=== PATIENT | female | born 1970 | race Two or more races ===

== ENCOUNTER 2018-02-10 08:45 | Outpatient (CLI) | payer OTHER ==
[~2018-02-10 08:45] MED LIST: FLONASE16 GM NS; ZANTAC300 MG PO; ZYRTEC10 MG PO
== END 2018-02-10 09:15 | disposition home or self-care (01) ==
LOC: LAB 08:45
DX: D50.0 Iron deficiency anemia secondary to blood loss (chronic) (principal); N93.9 Abnormal uterine and vaginal bleeding, unspecified; K21.9 Gastro-esophageal reflux disease without esophagitis; D51.8 Other vitamin B12 deficiency anemias; D50.8 Other iron deficiency anemias; D55.0 Anemia due to glucose-6-phosphate dehydrogenase [G6PD] deficiency; D51.0 Vitamin B12 deficiency anemia due to intrinsic factor deficiency; D51.1 Vitamin B12 deficiency anemia due to selective vitamin B12 malabsorption with proteinuria

== ENCOUNTER 2018-03-02 08:26 | Outpatient (CLI) | payer OTHER | END 2018-03-02 10:57 | disposition home or self-care (01) | LOC: SONOGRAMA 08:26 | DX: N60.11 Diffuse cystic mastopathy of right breast (principal); N60.12 Diffuse cystic mastopathy of left breast ==

== ENCOUNTER 2018-06-17 07:40 | Outpatient (CLI) | payer OTHER | END 2018-06-17 07:53 | disposition home or self-care (01) | LOC: LAB 07:40 | DX: D50.0 Iron deficiency anemia secondary to blood loss (chronic) (principal); N93.8 Other specified abnormal uterine and vaginal bleeding; D51.1 Vitamin B12 deficiency anemia due to selective vitamin B12 malabsorption with proteinuria; D51.0 Vitamin B12 deficiency anemia due to intrinsic factor deficiency; K21.9 Gastro-esophageal reflux disease without esophagitis; E03.8 Other specified hypothyroidism; E06.3 Autoimmune thyroiditis; D68.0 Von Willebrand disease; D68.8 Other specified coagulation defects ==

== ENCOUNTER 2018-06-17 08:35 | Outpatient (CLI) | payer OTHER | END 2018-06-17 08:53 | disposition home or self-care (01) | LOC: RAD 08:35 | DX: D50.0 Iron deficiency anemia secondary to blood loss (chronic) (principal); N93.8 Other specified abnormal uterine and vaginal bleeding; D51.1 Vitamin B12 deficiency anemia due to selective vitamin B12 malabsorption with proteinuria; D51.0 Vitamin B12 deficiency anemia due to intrinsic factor deficiency; K21.9 Gastro-esophageal reflux disease without esophagitis; E03.8 Other specified hypothyroidism; E06.3 Autoimmune thyroiditis; K59.09 Other constipation ==

== ENCOUNTER 2018-08-28 08:12 | Outpatient (CLI) | payer OTHER | END 2018-08-28 08:20 | disposition home or self-care (01) | LOC: LAB 08:12 | DX: D68.0 Von Willebrand disease (principal); D50.0 Iron deficiency anemia secondary to blood loss (chronic); N93.9 Abnormal uterine and vaginal bleeding, unspecified; D51.1 Vitamin B12 deficiency anemia due to selective vitamin B12 malabsorption with proteinuria; D51.0 Vitamin B12 deficiency anemia due to intrinsic factor deficiency; K21.9 Gastro-esophageal reflux disease without esophagitis; D50.8 Other iron deficiency anemias; D51.8 Other vitamin B12 deficiency anemias; D68.8 Other specified coagulation defects ==

== ENCOUNTER 2019-01-25 08:50 | Outpatient (CLI) | payer OTHER | END 2019-01-25 12:15 | disposition home or self-care (01) | LOC: LAB 08:50 | DX: D68.0 Von Willebrand disease (principal); D50.0 Iron deficiency anemia secondary to blood loss (chronic); N93.8 Other specified abnormal uterine and vaginal bleeding; D51.1 Vitamin B12 deficiency anemia due to selective vitamin B12 malabsorption with proteinuria; D51.0 Vitamin B12 deficiency anemia due to intrinsic factor deficiency; K21.9 Gastro-esophageal reflux disease without esophagitis; D50.8 Other iron deficiency anemias; D51.8 Other vitamin B12 deficiency anemias; I10 Essential (primary) hypertension; D68.8 Other specified coagulation defects ==

== ENCOUNTER 2019-07-29 08:09 | Outpatient (CLI) | payer OTHER | END 2019-07-29 08:31 | disposition home or self-care (01) | LOC: LAB 08:09 | DX: D68.0 Von Willebrand disease (principal); D50.0 Iron deficiency anemia secondary to blood loss (chronic); N93.8 Other specified abnormal uterine and vaginal bleeding; D51.1 Vitamin B12 deficiency anemia due to selective vitamin B12 malabsorption with proteinuria; D51.0 Vitamin B12 deficiency anemia due to intrinsic factor deficiency; K21.9 Gastro-esophageal reflux disease without esophagitis; D50.8 Other iron deficiency anemias ==

== ENCOUNTER → 2021-07-30 08:56 | Outpatient (CLI) | payer OTHER | END | disposition home or self-care (01) | LOC: LAB 08:56 | PROVIDERS: ATTEND Internal Medicine Hematology & Oncology | DX: D50.8 Other iron deficiency anemias (principal); I10 Essential (primary) hypertension; R74.02 Elevation of levels of lactic acid dehydrogenase [LDH]; K76.89 Other specified diseases of liver; D51.8 Other vitamin B12 deficiency anemias; E55.9 Vitamin D deficiency, unspecified; D68.8 Other specified coagulation defects; D68.0 Von Willebrand disease; D50.0 Iron deficiency anemia secondary to blood loss (chronic); N93.8 Other specified abnormal uterine and vaginal bleeding; D51.1 Vitamin B12 deficiency anemia due to selective vitamin B12 malabsorption with proteinuria; D51.0 Vitamin B12 deficiency anemia due to intrinsic factor deficiency; K21.9 Gastro-esophageal reflux disease without esophagitis ==